=== PATIENT | female | born 1975 | race Caucasian/White ===

== ENCOUNTER → 2017-03-23 | Outpatient (CLI) | payer SELFPAY ==
--- NOTE | 2017-03-27 12:50 | MM ---
Reason for exam: additional evaluation requested from prior study. Last mammogram was performed 1 year ago. History: Family history of breast cancer in sister at age 38. Benign US biopsy breast add'l VAD LT of the left breast, March 29, 2016. Benign US biopsy breast VAD RT of the right breast, March 29, 2016. Benign excisional biopsy of the left breast, 2002. Physical Findings: Nurse did not find any significant physical abnormalities on exam. MG 3D Diag Mammo W/Cad MYA Bilateral CC and MLO view(s) were taken. Prior study comparison: March 29, 2016, bilateral MG diagnostic eleno BI wo CAD. March 17, 2016, bilateral MG 3d diag mammo w/cad MYA. March 17, 2016, bilateral US breast limited BILAT. The breast tissue is heterogeneously dense. This may lower the sensitivity of mammography. Previous mammotome biopsy within the right and left breast. Redemonstrated nodular asymmetry superior left breast. This is just adjacent to the biopsy clip. Findings can be reassessed in 1 year. These results were verbally communicated with the patient and result sheet given to the patient on 03/23/17. ASSESSMENT: Probably benign, BI-RAD 3 RECOMMENDATION: Follow-up diagnostic mammogram of both breasts in 1 year.
== END | disposition home or self-care (01) ==
LOC: RADMAMWWP 09:46
PROVIDERS: ATTEND Family Medicine
DX: R92.8 Other abnormal and inconclusive findings on diagnostic imaging of breast (principal)
CPT/HCPCS: G0204; G0279

== ENCOUNTER → 2017-11-08 | Outpatient (CLI) | payer BC ==
--- NOTE | 2017-11-09 08:47 | USB ---
Reason for exam: clinical finding. History: Family history of breast cancer in sister at age 38. Benign US biopsy breast add'l VAD LT of the left breast, March 29, 2016. Benign US biopsy breast VAD RT of the right breast, March 29, 2016. Benign excisional biopsy of the left breast, 2002. Indicated problem(s): lump or thickening in the left breast. Physical Findings: Nurse Summary: prominent nodulairty 12 o'clock bilateral breast left axilla 0.5 x 0.5cm, movable palpable, bilateral tenderness with exam (nurse ts). US Breast LT Left breast ultrasound includes all four quadrants, the retroareolar region and axilla. Finding demonstrates a 0.5 x 0.3 x 0.4cm lesion too small to characterize at 1 o'clock. Axilla also scanned, normal node. Subcutaneous palpable 0.4cm. These results were verbally communicated with the patient and result sheet given to the patient on 11/08/17. ASSESSMENT: Probably benign, BI-RAD 3 RECOMMENDATION: Ultrasound of the left breast in 6 months. Manage patient on a clinical basis.
== END | disposition home or self-care (01) ==
LOC: RADUSWWP 15:33
PROVIDERS: ATTEND Family Medicine
DX: N63.20 Unspecified lump in the left breast, unspecified quadrant (principal); D24.9 Benign neoplasm of unspecified breast

== ENCOUNTER → 2018-05-09 | Outpatient (CLI) | payer BC ==
--- NOTE | 2018-05-09 16:10 | MM ---
Reason for exam: additional evaluation requested from prior study. Last mammogram was performed 1 year and 2 months ago. History: Family history of breast cancer in sister at age 38. Benign US biopsy breast add'l VAD LT of the left breast, March 29, 2016. Benign US biopsy breast VAD RT of the right breast, March 29, 2016. Benign excisional biopsy of the left breast, 2002. Physical Findings: Nurse did not find any significant physical abnormalities on exam. MG 3D Diag Mammo W/Cad MYA Bilateral CC and MLO view(s) were taken. Prior study comparison: March 23, 2017, bilateral MG 3d diag mammo w/cad MYA. March 29, 2016, bilateral MG diagnostic eleno BI wo CAD. The breast tissue is heterogeneously dense. This may lower the sensitivity of mammography. Finding: There are typically benign vascular calcifications in both breasts. Previous mammotome biopsy in the right and left breast. There is no discrete abnormality. Left axillary loop recorder. These results were verbally communicated with the patient and result sheet given to the patient on 05/09/18. ASSESSMENT: Benign, BI-RAD 2 RECOMMENDATION: Routine screening mammogram of both breasts in 1 year.
--- NOTE | 2018-05-09 16:11 | USB ---
Reason for exam: additional evaluation requested from prior study. History: Family history of breast cancer in sister at age 38. Benign US biopsy breast add'l VAD LT of the left breast, March 29, 2016. Benign US biopsy breast VAD RT of the right breast, March 29, 2016. Benign excisional biopsy of the left breast, 2002. US Breast LT Left complete breast ultrasound includes all four quadrants, the retroareolar region and axilla. Finding demonstrates no cystic or solid lesion seen. These results were verbally communicated with the patient and result sheet given to the patient on 05/09/18. ASSESSMENT: Negative, BI-RAD 1 RECOMMENDATION: Routine screening mammogram of both breasts in 1 year.
== END | disposition home or self-care (01) ==
LOC: RADMAMWWP 14:46
PROVIDERS: ATTEND Family Medicine
DX: R92.8 Other abnormal and inconclusive findings on diagnostic imaging of breast (principal)
CPT/HCPCS: 77062; 77066

== ENCOUNTER → 2018-05-30 | Outpatient (CLI) | payer BC ==
--- NOTE | 2018-05-31 10:45 | US ---
EXAMINATION TYPE: US extremity nonvasc mass RT DATE OF EXAM: 05/30/2018 COMPARISON: NONE CLINICAL HISTORY: D17.39 Benign lipomatous neoplasm of skin and subc. At patients palpable is a hypoechoic non-vascular mass 5.0 x 1.6 x 5.2cm, probable lipoma. IMPRESSION: 1. Hypodense isoechoic structure within the subcutaneous tissues can be compatible with a lipoma at t he palpable region.
== END | disposition home or self-care (01) ==
LOC: RADUSWWP 15:32
PROVIDERS: ATTEND Surgery Plastic and Reconstructive Surgery
DX: D17.21 Benign lipomatous neoplasm of skin and subcutaneous tissue of right arm (principal)

== ENCOUNTER → 2018-06-21 | Day surgery (SDC) | payer BC ==
[2018-06-18 12:00] VITALS: BMI 29.0
[~2018-06-21] MED LIST: BUPIVACAINE-EPI 0.5%-1:200,000 10 ML VIAL SQ ONE; DEXAMETHASONE SOD PHOSPHATE 10 MG/ML 1 ML VIAL IV ONE; HEPARIN SODIUM,PORCINE 5,000 UNIT/ML 1 ML VIAL SQ ONE; IBUPROFEN 200 MG TAB PO ONE; LACTATED RINGERS 1,000 ML IV SCH; LIDOCAINE 1% 20 ML VIAL (10MG/ML) FOR IV START INTRADERMA PRN; LIDOCAINE 1% INJ 10MG/ML (20 ML MDV) ONE; MIDAZOLAM 2 MG/2 ML VIAL IV PRN; MIDAZOLAM 2 MG/2 ML VIAL ONE; ONDANSETRON 4 MG/2 ML VIAL IVP ONE; PROPOFOL 10 MG/ML 20 ML VIAL IV ONE; Pre Op ABX Message 1 EACH MISC MISCELLANE ONE; SUCCINYLCHOLINE CHLORIDE 100 MG/5 ML SYR IV ONE; fentaNYL (PF) 50 MCG/ML 2 ML AMP ONE
--- NOTE | 2018-06-21 00:49 | P.GSHP ---
History of Present Illness H&P Date: 06/21/18 CHIEF COMPLAINT: Painful lesion along the right proximal arm. HISTORY OF PRESENT ILLNESS: Fouzia Naik is a very pleasant 42 years-old female who comes in with a growth along the right proximal arm. She reports muscle aches and increased size of the mass, which is over 5 cm in size. PAST MEDICAL HISTORY: Please see list. PAST SURGICAL HISTORY: Please see list. MEDICATIONS: Please see list. ALLERGIES: Please see list. SOCIAL HISTORY: No illicit drug use FAMILY HISTORY: No reports of Crohn disease or ulcerative colitis. REVIEW OF ORGAN SYSTEMS: CONSTITUTIONAL: No fevers or chills. HEENT: Denies any trouble with vision, hearing or nosebleeds. No difficulty swallowing. LYMPHATIC: The patient denies any lumps and bumps around the neck. ENDOCRINE: Denies any thyroid disorders. Denies any blood sugar glucose intolerance. RESPIRATORY: Denies pneumonia. Denies any troubles with breathing or dyspnea on exertion. CARDIOVASCULAR: Denies any chest pain, palpitations, or recent heart attacks. GASTROINTESTINAL: Denies fatty food intolerance. Denies change in bowel habits and gas bloat. Has GERD. GENITOURINARY: Denies any blood in urine or increased urinary frequency. MUSCULOSKELETAL: Has back pain, stiffness and oint arthritis. History of knee procedure. NEUROLOGIC: Denies any numbness or tingling along the distal extremities. No seizure disorders or headaches. PSYCHIATRIC: Denies any depression or suicidal ideation. HEMATOLOGIC: Denies any abnormal bleeding or bruising. Personal history of DVT. BREASTS: Denies any breast lumps, pain or nipple discharge. SKIN: No current skin cancer. No rash. PHYSICAL EXAM: VITAL SIGNS: Stable Patient is a 42-year-old female. Musculoskeletal: Over 5 cm soft tissue mass extending into deep muscle. No erythema noted. GENERAL: Well developed and in no acute distress. Pleasant. HEENT: No sclera icterus. Extraocular movements grossly intact. Moist buccal mucosa. Head is atraumatic, normocephalic. Hears conversational speech. No nasal drainage. NECK: Supple without lymphadenopathy. No JV distention. CHEST: Non-labored respirations and equal bilateral excursions. CARDIOVASCULAR: Regular rate and rhythm. Palpable 2+ radial pulses. ABDOMEN: Soft. Non-tender. Nondistended. NEUROLOGIC: No focal or lateralizing signs. PSYCH: Appropriate affect. Alert and oriented to person, place and time. SKIN: Well perfused. Good skin turgor. ASSESSMENT: 1. History of tender right arm lipoma. PLAN: 1. The area of concern is potentially deep into the muscle, subfascial of at least 5 cm. 2. Excision was described. 3. She may need at least one week off from activities. Past Medical History Past Medical History: Deep Vein Thrombosis (DVT) Additional Past Medical History / Comment(s): palpitations,. RECENT ANTIBIOTICS FOR TOOTH INFECTION. LT DVT 2015 History of Any Multi-Drug Resistant Organisms: None Reported Past Surgical History: Cholecystectomy, Hernia Repair, Orthopedic Surgery, Tonsillectomy, Uterine Ablation Additional Past Surgical History / Comment(s): loop recorder inserted 10/2015, kwesi knee arthrscopy, dg fundoplication Past Anesthesia/Blood Transfusion Reactions: No Reported Reaction Type of Cardiac Device: Loop Device Placement Date:: 10/2015 Smoking Status: Never smoker - Past Family History Father Family Medical History: Cancer Additional Family Medical History / Comment(s): colon Sister(s) Family Medical History: Cancer Mother Family Medical History: Deep Vein Thrombosis (DVT) Medications and Allergies Home Medications Medication Instructions Recorded Confirmed Type Propranolol [Inderal] 20 mg PO DAILY PRN 06/18/18 06/18/18 History Allergies Allergy/AdvReac Type Severity Reaction Status Date / Time No Known Allergies Allergy Verified 06/18/18 11:54
[2018-06-21] MEDS: ceFAZolin IN SWFI 2 GM/20 ML SYRINGE IVP ONE ×2 (06:55→07:05)
--- NOTE | 2018-06-21 07:45 | P.OP ---
Date of Procedure: 06/21/18 Description of Procedure: SURGEON: GEN WOODARD MD AUTOCAD DETAILER: NONE. PREOPERATIVE DIAGNOSES: 1. Right proximal anterior arm lipoma. POSTOPERATIVE DIAGNOSES: 1. Right proximal anterior arm lipoma. OPERATION: 1. Excision of right subcutaneous proximal anterior arm lipoma, 5 x 5 cm. 2. Intermediate closure right arm incision, 7 cm. ANESTHESIA: GETA with local ESTIMATED BLOOD LOSS: less 5 mL. SPECIMENS REMOVED: 1. Right arm subcutaneous tumor COMPLICATIONS: None. INDICATIONS: The patient is a 42-year-old female who presents with right arm subcutaneous tumor. Surgical options, including excision was discussed. Benefits and risks were described. Informed consent was obtained. DESCRIPTION OF PROCEDURE: Patient was brought into the operating room, laid supine position. After adequate IV sedation, the abdomen was prepped and draped in standard sterile fashion using ChloraPrep. A timeout protocol was confirmed with the surgical team regarding patient's name including procedures to be performed. Preoperative medications was administered. Next, field block using 30 mL of local was administered. The right arm mass was measured using a ruler with borders marked with indelible marker. A transverse incision of 7 cm into the dermis followed by circumferential dissection of the fatty tumor using electro-Bovie cautery was made deep into the subcutaneous tissue. Additional smaller lipomas were also resected in a piece meal fashion. Hemostasis was checked with electrocautery cautery. The wound was closed in multiple layers including 0 Vicryl for the deep subcutaneous tissue. 3-0 Vicryl was placed interrupted along the deep dermis. The skin was closed using 4-0 Monocryl. Exofin tape including liquid was used as the final fourth layer. The skin was cleansed. Optifoam dressing was placed. At the end of the procedure, needle, sponge, and instrument count had been verified correct by the assistant professor surgical technology. The patient was taken to the postanesthesia care unit in stable condition. FINDINGS: 1. Right arm tumor, 5 x 5 cm extension into deep subcutaneous tissue. Plan - Discharge Summary New Discharge Prescriptions: No Action Propranolol [Inderal] 20 mg PO DAILY PRN PRN Reason: PAPLITATIONS Discharge Medication List Propranolol [Inderal] 20 mg PO DAILY PRN 06/18/18 [History]
[2018-06-21 07:54] VITALS: TEMP 98
[2018-06-21 08:32] VITALS: RESP 18
[2018-06-21 09:25] VITALS: BP 137/91; PULSE 87
== END | disposition home or self-care (01) ==
LOC: OR 05:43
PROVIDERS: ATTEND Surgery Plastic and Reconstructive Surgery
DX: D17.21 Benign lipomatous neoplasm of skin and subcutaneous tissue of right arm (principal); Z86.718 Personal history of other venous thrombosis and embolism; Z79.899 Other long term (current) drug therapy; I49.3 Ventricular premature depolarization
CPT/HCPCS: 81025; 88304; 24071; J2250; J1644; J1100; J2405; J2001; J3010; J0330; J2704; J0690

== ENCOUNTER → 2018-10-11 | Outpatient (CLI) | payer BC ==
--- NOTE | 2018-10-11 13:42 | MM ---
Reason for exam: clinical finding. Last mammogram was performed 5 months ago. History: Family history of breast cancer in sister at age 38. Benign US biopsy breast add'l VAD LT of the left breast, March 29, 2016. Benign US biopsy breast VAD RT of the right breast, March 29, 2016. Benign excisional biopsy of the left breast, 2002. Took hormonal contraceptives for 8 years. Physical Findings: Nurse Summary: generalized lumpiness 5 o'clock, left breast pain (nurse precious). MG 3D Diag Mammo W/Cad LT CC and MLO view(s) were taken of the left breast. Prior study comparison: May 09, 2018, bilateral MG 3d diag mammo w/cad MYA. March 23, 2017, bilateral MG 3d diag mammo w/cad MYA. The breast tissue is heterogeneously dense. This may lower the sensitivity of mammography. Previous mammotome biopsy in the left breast. Stable focal asymmetry. These results were verbally communicated with the patient and result sheet given to the patient on 10/11/18. ASSESSMENT: Incomplete: need additional imaging evaluation, BI-RAD 0 RECOMMENDATION: Ultrasound of the left breast.
--- NOTE | 2018-10-11 13:43 | USB ---
Reason for exam: additional evaluation requested from abnormal screening. History: Family history of breast cancer in sister at age 38. Benign US biopsy breast add'l VAD LT of the left breast, March 29, 2016. Benign US biopsy breast VAD RT of the right breast, March 29, 2016. Benign excisional biopsy of the left breast, 2002. Took hormonal contraceptives for 8 years. US Breast Limited LT Left limited breast ultrasound including focal area of concern, retroareolar and axilla demonstrates no cystic or solid lesion seen. These results were verbally communicated with the patient and result sheet given to the patient on 10/11/18. ASSESSMENT: Negative, BI-RAD 1 RECOMMENDATION: Routine screening mammogram of both breasts in 7 months. Back on schedule. Manage patient on a clinical basis.
== END | disposition home or self-care (01) ==
LOC: RADMAMWWP 11:55
PROVIDERS: ATTEND Family Medicine
DX: N63.20 Unspecified lump in the left breast, unspecified quadrant (principal)
CPT/HCPCS: 77061; 77065

== ENCOUNTER → 2019-06-06 | Outpatient (CLI) | payer BC ==
--- NOTE | 2019-06-09 10:17 | MM ---
Reason for exam: screening (asymptomatic). Last mammogram was performed 8 months ago. History: Family history of breast cancer in sister at age 38. Benign US biopsy breast add'l VAD LT of the left breast, March 29, 2016. Benign US biopsy breast VAD RT of the right breast, March 29, 2016. Benign excisional biopsy of the left breast, 2002. Took hormonal contraceptives for 8 years. Physical Findings: A clinical breast exam by your physician is recommended on an annual basis and results should be correlated with mammographic findings. MG 3D Screening Mammo W/Cad Bilateral CC and MLO view(s) were taken. Prior study comparison: October 11, 2018, left breast MG 3d diag mammo w/cad LT. May 09, 2018, bilateral MG 3d diag mammo w/cad MYA. The breast tissue is heterogeneously dense. This may lower the sensitivity of mammography. Previous mammotome biopsy in the right and left breast. There is no discrete abnormality. No significant changes when compared with prior studies. ASSESSMENT: Benign, BI-RAD 2 RECOMMENDATION: Routine screening mammogram of both breasts in 1 year.
== END | disposition home or self-care (01) ==
LOC: RADMAMWWP 10:13
PROVIDERS: ATTEND Family Medicine
DX: Z12.31 Encounter for screening mammogram for malignant neoplasm of breast (principal)
CPT/HCPCS: 77063; 77067

== ENCOUNTER → 2022-06-29 | Outpatient (CLI) | payer BC ==
--- NOTE | 2022-06-30 08:32 | MM ---
Reason for Exam: Screening (asymptomatic). Last mammogram was performed 3 year(s) and 1 month(s) ago. Patient History: Menarche at age 11. First Full-Term at age 20. Perimenopausal. Patient used Hormonal Contraceptives for 8 years. 2002, Benign Excisional Biopsy on the left side. 03/29/2016, Benign Core Biopsy on the left side. 03/29/2016, Benign Core Biopsy on the right side. Sister had breast cancer, age 38. Risk Values: Vielka 5 year model risk: 4.3%. NCI Lifetime model risk: 28.0%. Prior Study Comparison: 05/09/2018 Bilateral Diagnostic Mammogram, [facility]. 10/11/2018 Left Diagnostic Mammogram, [facility]. 06/06/2019 Bilateral Screening Mammogram, [facility]. Tissue Density: The breast tissue is heterogeneously dense. This may lower the sensitivity of mammography. Findings: Analyzed By CAD. Core markers are within the bilateral breasts. No suspicious groups of microcalcifications, spiculated or lobular masses, architectural distortion or other secondary signs of malignancy are mammographically apparent. Overall Assessment: Benign, BI-RAD 2 Management: Screening Mammogram of both breasts in 1 year. A negative mammogram report should not preclude additional follow up of suspicious palpable abnormalities. Patient should continue monthly self breast exam. A clinical breast exam by your physician is recommended on an annual basis and results should be correlated with mammographic findings. Electronically signed and approved by: Silverio Gonzalez D.O. Radiologis
== END | disposition home or self-care (01) ==
LOC: RADMAMWWP 12:00
PROVIDERS: ATTEND Family Medicine
DX: Z12.31 Encounter for screening mammogram for malignant neoplasm of breast (principal); Z80.3 Family history of malignant neoplasm of breast
CPT/HCPCS: 77063; 77067

== ENCOUNTER 2023-05-02 06:58 | Day surgery (SDC) | payer BC ==
[2023-05-02 07:35] VITALS: RESP 16; TEMP 97.5
--- NOTE | 2023-05-02 07:37 | P.GSHP ---
History of Present Illness H&P Date: 05/02/23 CHIEF COMPLAINT: GERD HISTORY OF PRESENT ILLNESS: The patient is a 47-year-old female who presents reports gastroesophageal reflux disease. Upper endoscopy was offered for further evaluation and management. PAST MEDICAL HISTORY: Please see list. PAST SURGICAL HISTORY: Please see list. MEDICATIONS: Please see list. ALLERGIES: Please see list. SOCIAL HISTORY: No illicit drug use FAMILY HISTORY: No reports of Crohn disease or ulcerative colitis. REVIEW OF ORGAN SYSTEMS: CONSTITUTIONAL: No reports of fevers or chills. GI: Denies any blood in stools or constipation. PHYSICAL EXAM: VITAL SIGNS: Stable GENERAL: Well-developed and pleasant in no acute distress. HEENT: No scleral icterus. Extraocular movements grossly intact. Moist buccal mucosa. NECK: Supple without lymphadenopathy. CHEST: Unlabored respirations. Equal bilateral excursions. CARDIOVASCULAR: Regular rate and rhythm. Distal 2+ pulses. ABDOMEN: Soft, nondistended. MUSCULOSKELETAL: No clubbing, cyanosis, or edema. ASSESSMENT: 1. Gastroesophageal reflux disease PLAN: 1. Recommend proceeding with an upper endoscopy Past Medical History Past Medical History: Deep Vein Thrombosis (DVT), GERD/Reflux Additional Past Medical History / Comment(s): palpitations. LT DVT 2015 History of Any Multi-Drug Resistant Organisms: None Reported Past Surgical History: Back Surgery, Cholecystectomy, Hernia Repair, Orthopedic Surgery, Tonsillectomy, Uterine Ablation Additional Past Surgical History / Comment(s): loop recorder, kwesi knee arthrscopy, dg fundoplication,spinal fusion [id number],lipoma from arm Past Anesthesia/Blood Transfusion Reactions: No Reported Reaction Type of Cardiac Device: Loop Device Placement Date:: 10/2015 Smoking Status: Never smoker - Past Family History Father Family Medical History: Cancer Additional Family Medical History / Comment(s): colon Sister(s) Family Medical History: Cancer Mother Family Medical History: Deep Vein Thrombosis (DVT) Medications and Allergies Home Medications Medication Instructions Recorded Confirmed Type Propranolol [Inderal] 20 mg PO DAILY 06/18/18 04/30/23 History Aloe(Unk) 1 tab PO DAILY 04/30/23 04/30/23 History Collagen(Unk) 1 tab PO DAILY 04/30/23 04/30/23 History Esomeprazole Magnesium 40 mg PO DAILY 04/30/23 04/30/23 History Gabapentin 600 mg PO BID 04/30/23 04/30/23 History HYDROcodone/APAP 10-325MG [[place] 1 tab PO Q8H PRN 04/30/23 04/30/23 History 10-325] tiZANidine HCL 4 mg PO HS 04/30/23 04/30/23 History Allergies Allergy/AdvReac Type Severity Reaction Status Date / Time hydromorphone [From Dilaudid] AdvReac Nausea & Verified 04/30/23 13:58 Vomiting Surgical - Exam Vital Signs Temp Pulse Resp BP Pulse Ox 97.5 F L 52 L 16 111/67 97 05/02/23 07:34 05/02/23 07:34 05/02/23 07:34 05/02/23 07:34 05/02/23 07:34
[2023-05-02] MEDS ORDERED: LIDOCAINE 1% (10MG/ML) FOR IV START INTRADERMA ONE (07:45)
[2023-05-02] MEDS ORDERED: LACTATED RINGERS 1,000 ML IV ONE (07:45)
[2023-05-02] MEDS ORDERED: PROPOFOL 10 MG/ML 20 ML VIAL IV ONE (08:00)
[2023-05-02 08:25] VITALS: PULSE 58
[2023-05-02 08:36] VITALS: BP 122/84
--- NOTE | 2023-05-02 08:54 | P.PCN ---
Date of Procedure: 05/02/23 Description of Procedure: PREOPERATIVE DIAGNOSIS: Gastroesophageal reflux disease. History of Shalini fundoplasty POSTOPERATIVE DIAGNOSIS: Gastroesophageal reflux disease with erosive esophagitis History of Shalini fundoplasty OPERATION: Esophagogastroduodenoscopy with biopsies along antrum and duodenum SURGEON: Chyna Ricardo MD ANESTHESIA: MAC. INDICATIONS: The patient is a 47-year-old female who presents with reflux disease. Benefits and risks of the procedure were described. Informed consent was obtained. DESCRIPTION: The patient was brought into the endoscopy suite and laid in the left lateral decubitus position. An Olympus gastroscope was passed along the posterior oropharynx down to the distal esophagus where the squamocolumnar junction was encountered at 37 cm from the incisors. The stomach was entered and no bile reflux was found. Additional findings are listed below. Biopsies with cold forceps were obtained of the antrum. The first through third portion of the duodenum was examined. Retroflexion of the scope confirmed Hill grade 1+ lower esophageal valve. The squamocolumnar junction demonstrated LA grade B erosive esophagitis. The stomach was desufflated. The patient tolerated the procedure well. FINDINGS: Squamocolumnar junction 37 cm from the incisors. Diaphragmatic hiatus at 37 cm. Hill grade 1+ lower esophageal valve. LA grade B erosive esophagitis. Biopsies obtained of the duodenum. Chronic gastritis with biopsies obtained. RECOMMENDATIONS: Upper endoscopy as needed. Esophagram recommended Plan - Discharge Summary Discharge Rx Participant: No New Discharge Prescriptions: Continue Propranolol [Inderal] 20 mg PO DAILY HYDROcodone/APAP 10-325MG [[place] 10-325] 1 tab PO Q8H PRN PRN Reason: Pain Gabapentin 600 mg PO BID Collagen(Unk) 1 tab PO DAILY tiZANidine HCL 4 mg PO HS Esomeprazole Magnesium 40 mg PO DAILY Aloe(Unk) 1 tab PO DAILY Discharge Medication List Propranolol [Inderal] 20 mg PO DAILY 06/18/18 [History] Aloe(Unk) 1 tab PO DAILY 04/30/23 [History] Collagen(Unk) 1 tab PO DAILY 04/30/23 [History] Esomeprazole Magnesium 40 mg PO DAILY 04/30/23 [History] Gabapentin 600 mg PO BID 04/30/23 [History] HYDROcodone/APAP 10-325MG [[place] 10-325] 1 tab PO Q8H PRN 04/30/23 [History] tiZANidine HCL 4 mg PO HS 04/30/23 [History] Follow up Appointment(s)/Referral(s): Chyna Ricardo MD [STAFF PHYSICIAN] - 06/05/23 4:00 pm Patient Instructions/Handouts: *Surgery [facility] - (Anesthesia) Discharge Instructions Outpatient Surgery, GERD (Gastroesophageal Reflux Disease) (GEN) Discharge Disposition: HOME SELF-CARE
== END 2023-05-02 09:16 | disposition home or self-care (01) ==
LOC: ORWHC2ENDO 06:58
PROVIDERS: ATTEND Surgery Plastic and Reconstructive Surgery
DX: K29.50 Unspecified chronic gastritis without bleeding (principal); K21.00 Gastro-esophageal reflux disease with esophagitis, without bleeding; K44.9 Diaphragmatic hernia without obstruction or gangrene; Z86.718 Personal history of other venous thrombosis and embolism; Z90.49 Acquired absence of other specified parts of digestive tract; Z90.89 Acquired absence of other organs; Z98.890 Other specified postprocedural states; Z88.0 Allergy status to penicillin; Z88.5 Allergy status to narcotic agent; Z79.899 Other long term (current) drug therapy
CPT/HCPCS: 81025; 88305; 43239; J2704

== ENCOUNTER → 2023-05-25 | Outpatient (CLI) | payer BC ==
--- NOTE | 2023-05-25 09:46 | FL ---
ESOPHOGRAM. HISTORY: Dysphagia Esophagram was performed per the air contrast technique. The patient swallowed barium and effervesce nt crystals without difficulty or delay. Esophageal peristalsis and motility appear to be within normal limits. There is no evidence for filling defect, mass or diverticulum. No hiatal hernia seen. Subsequently single contrast cervical esophagram was performed which fails demonstrate evidence for a spiration penetration or mass. IMPRESSION: Unremarkable study. Changes of prior Estiven fundoplication without evidence for recurrent hernia at this time.
== END | disposition home or self-care (01) ==
LOC: RADUSWWP 09:01
PROVIDERS: ATTEND Surgery Plastic and Reconstructive Surgery
DX: K44.9 Diaphragmatic hernia without obstruction or gangrene (principal); R13.10 Dysphagia, unspecified
CPT/HCPCS: 74220

== ENCOUNTER → 2023-10-02 | Outpatient (CLI) | payer BC ==
--- NOTE | 2023-10-04 12:11 | MM ---
Reason for Exam: Screening (asymptomatic). Last mammogram was performed 1 year(s) and 3 month(s) ago. Patient History: Menarche at age 11. First Full-Term at age 20. Perimenopausal. Patient used Hormonal Contraceptives for 8 years. 2002, Benign Excisional Biopsy on the left side. 03/29/2016, Benign Core Biopsy on the left side. 03/29/2016, Benign Core Biopsy on the right side. Sister had breast cancer, age 38. Last menstrual period: 03/12/2013 Risk Values: Vielka 5 year model risk: 3.7%. NCI Lifetime model risk: 26.8%. Prior Study Comparison: 10/11/2018 Left Diagnostic Mammogram, [facility]. 06/06/2019 Bilateral Screening Mammogram, [facility]. 06/29/2022 Bilateral MG 3D screening mammo w/cad, [facility]. Tissue Density: The breast tissue is heterogeneously dense. This may lower the sensitivity of mammography. Findings: Analyzed By CAD. There is no suspicious group of microcalcifications or new suspicious mass in either breast. Overall Assessment: Benign, BI-RAD 2 Management: Screening Mammogram of both breasts in 1 year. . Patient should continue monthly self-breast exams. A clinical breast exam by your physician is recommended on an annual basis. This exam should not preclude additional follow-up of suspicious palpable abnormalities. Note on Vielka scores and lifetime risk: 1. A Vielka score greater than 3% is considered moderate risk. If this is the case, consider specialist referral to assess eligibility for a risk reducing agent. 2. If overall lifetime risk for the development of breast cancer is 20% or higher, the patient may qualify for future screening with alternating mammogram and breast MRI. Electronically signed and approved by: Micah Parr M.D. Radiologis
== END | disposition home or self-care (01) ==
LOC: RADMAMWWP 15:41
PROVIDERS: ATTEND Family Medicine
DX: Z12.31 Encounter for screening mammogram for malignant neoplasm of breast (principal); Z80.3 Family history of malignant neoplasm of breast
CPT/HCPCS: 77063; 77067